=== PATIENT | female | born 2005 | race Caucasian/White ===

== ENCOUNTER 2025-07-23 21:54 | Inpatient (IN) ==
--- NOTE | 2025-07-23 22:34 | Emergency Department Note ---
Impression & Plan Suicidal ideation, Intentional self-harm ED Provider Note HISTORY OF PRESENT ILLNESS: Patient is a 20-year-old female presenting with suicidal ideation and self-harm behavior. Patient reports that for the last 2 weeks she has been having increasing thoughts of wanting to end her life. She states that 2 weeks ago she was taken off of olanzapine and started on a new medication. She reports her last dose of this medication was yesterday and she has not had a dose for today. She states that today she had thoughts of wanting to kill herself with a plan to cut her wrists. She reports that she last attempted suicide last year when she tried to jump out of a moving vehicle. She states that she follows regularly with a psychiatrist and therapist. She reports that she had a therapy appointment today and was fine afterwards. Denies any particular triggers to her suicidality. She denies any homicidal ideation. Denies any auditory or visual hallucinations. She reports her last inpatient admission for mental health was in September 2024 in [place]. ROS: as above PHYSICAL EXAM: Constitutional: Patient appears in no acute distress. HENT: Head: Normocephalic and atraumatic. Eyes: EOMI, PERRL Mouth/Throat: Mucous membranes moist. Neck: Trachea midline. Neck supple. Musculoskeletal: No edema, tenderness or deformity noted. Skin: Warm and dry. No rash, erythema, pallor or cyanosis Psychiatric: Anxious appearing Neurological: Alert and keenly responsive. CN II-XII grossly intact, moving all extremities equally and fully. MDM: - Vitals signs showed tachycardia - History obtained via patient. History as above. - Chronic conditions affecting care: Anxiety/depression; OCD - Differential diagnoses include, but are not limited to: Hypothyroidism; drug intoxication; UTI; alcohol intoxication; depression - External medical records reviewed. - Laboratory workup interpreted by myself showed normal WBC; stable electrolytes; negative hCG; negative salicylate/acetaminophen/alcohol levels; elevated TSH but normal T4 - COVID negative - UA negative for infection. Noted to have bacteria, but also noted to have significant amount of epithelial cells. Urine culture was reflexed, but patient is not having any acute urinary symptoms so will not treat at this time, as likely just a bad sample. - UDS negative. - Patient was seen in conjunction with behavioral health case hardener. Patient was medically cleared. She was a voluntary 201 admission. She was accepted to [facility] inpatient psychiatric unit [address]. ASSESSMENT AND PLAN: Diagnosis: Suicidal ideation; intentional self-harm Plan: admit to [address] [place] [address] Past Med/Surg History Problem List (Updated 07/24/25 @ 00:30 by Katie Garg MD) Intentional self-harm (Acute) Suicidal ideation (Acute) Social History Smoking Status: Never smoker Preferred Language: Bengali Feels Safe at Home: Yes Gender Identity: Female Allergies Allergies Allergy/AdvReac Type Severity Reaction Status Date / Time No Known Allergies Allergy Unverified 09/14/24 16:37 Home Meds Home Medications Medication Instructions Recorded Confirmed hydroxyzine HCl 25 mg tablet 25 mg PO HS 09/05/24 07/23/25 brexpiprazole 0.5 mg tablet 0.5 mg PO DAILY 07/23/25 07/23/25 (Rexulti) doxylamine succinate 25 mg tablet 25 mg PO HS PRN Insomnia 07/23/25 07/23/25 (Unisom (doxylamine)) paroxetine HCl 30 mg tablet 30 mg PO DAILY 07/23/25 07/23/25 Results & Data (ED) Vital Signs Vital Signs - 24 hr 07/23/25 21:56 07/23/25 22:13 07/24/25 00:00 Temperature 36.5 C Temperature Source Temporal Artery Scan Pulse Rate 96 H Pulse Rate [Finger] 86 Pulse Rhythm [Finger] Regular Pulse Strength [Finger] Normal Respiratory Rate 16 16 Respiratory Effort / Characteristics Non-Labored Spontaneous Non-Labored Spontaneous Respiratory Depth Normal Normal Respiratory Pattern Regular Regular Blood Pressure 129/87 Blood Pressure [Right Arm] 101/59 L Blood Pressure Mean 101 Blood Pressure Mean [Right Arm] 73 Blood Pressure Position [Right Arm] Lying Pulse Oximetry 96 97 Oxygen Delivery Method Room Air Room Air Room Air Sepsis Recent Fever Within 48 Hours No Sepsis New/Unexplained Change in Mental Status N/A Sepsis Action Taken by Nursing No Action Required Laboratory Data 07/23/25 22:10 07/23/25 22:10 Lab Results 07/23/25 Range/Units 22:10 WBC 9.84 (4.8-10.8) K/ul RBC 4.65 (4.20-5.40) M/uL Hgb 13.4 (12.0-16.0) g/dl Hct 39.1 (37.0-47.0) % MCV 84.1 (80.0-100.0) fL MCH 28.8 (25.0-34.0) pg MCHC 34.3 (32.0-36.0) g/dL RDW Std Deviation 39.1 (36.4-46.3) fL RDW Coeff of [place] 12.9 (11.5-14.5) % Plt Count 318 (130-400) K/uL MPV 8.9 L (9.4-12.4) fL Immature Gran % (Auto) 0.3 % Neut % (Auto) 61.4 % Lymph % (Auto) 32.2 % [place] % (Auto) 4.4 % Eos % (Auto) 1.2 % Baso % (Auto) 0.5 % Neut # (Auto) 6.04 (1.40-6.50) K/uL Lymph # (Auto) 3.17 (1.20-3.40) K/uL [place] # (Auto) 0.43 (0.11-0.59) K/uL Eos # (Auto) 0.12 (0.00-0.50) K/uL Baso # (Auto) 0.05 (0.00-0.20) K/uL Immature Gran # (Auto) 0.03 (0.01-0.20) K/uL Sodium 137 (136-145) mmol/L Potassium 3.7 (3.5-5.1) mmol/L Chloride 102 (98-107) mmol/L Carbon Dioxide 24 (21-32) mmol/L Anion Gap 11 (3-11) BUN 10 (6-23) mg/dl Creatinine 0.72 (0.6-1.2) mg/dl Est Cr Clr Drug Dosing 105.9 ml/min eGFR 122.68 BUN/Creatinine Ratio 13.9 (10-20) Glucose 91 (70-99(Fasting)) mg/dl Calcium 9.3 (8.6-10.3) mg/dl Total Bilirubin 0.4 (0.2-1.0) mg/dl AST 25 (13-39) U/L ALT 23 (7-52) U/L Alkaline Phosphatase 98 (34-104) U/L Total Protein 7.9 (6.0-8.3) gm/dl Albumin 4.4 (3.4-5.0) gm/dl Globulin 3.5 (2.5-4.0) gm/dl Albumin/Globulin Ratio 1.3 (0.9-2) TSH 6.687 H (0.300-4.500) uIu/ml Free T4 0.97 (0.61-1.60) ng/dl HCG, Qual Negative (Negative) Urine Color Yellow Urine Appearance Cloudy A (Clear) Urine pH 6.0 (4.5-7.5) Ur Specific [place] 1.026 (1.000-1.030) Urine Protein Negative (Negative) Urine Glucose (UA) Negative (Negative) Urine Ketones Negative (Negative) Urine Blood Negative (Negative) Urine Nitrite Negative (Negative) Urine Bilirubin Negative (Negative) Urine Urobilinogen Negative (Negative) Ur Leukocyte Esterase 1+ H (Negative) Urine WBC (Auto) 21-50 H (0-5) /hpf Urine RBC (Auto) 3-5 H (0-2) /hpf U Hyaline Cast (Auto) 0-2 (0-2) /lpf U Epithel Cells (Auto) >20 H (0-2) /hpf Urine Bacteria (Auto) 1+ H (None Seen) Urine Comment Salicylates < 3.0 L (3.0-30) mg/dl Urine Opiates Screen Neg (Neg) Ur Methadone, Qual Neg (Neg) Urine Fentanyl Screen Neg (Neg) Acetaminophen < 3 L (10-30) ug/ml Urine Barbiturates Neg (Neg) Ur Phencyclidine (PCP) Neg (Neg) U Amphetamin/Meth Scrn Neg (Neg) MDMA (Ecstasy) Screen Neg (Neg) U Benzodiazepines Scrn Neg (Neg) Ur Cocaine Metabolite Neg (Neg) U Marijuana (THC) Screen Neg (Neg) Ethyl Alcohol mg/dL < 10.0 (<10.0) mg/dl SARS-CoV-2, RNA, NAAT NEGATIVE (NEGATIVE) Discharge Plan Visit Data Chief Complaint: Mental Health Evaluation Stated Complaint: PSYCHIATRIC EVAL ED Provider: Katie Garg Discharge Problem: Suicidal ideation, Intentional self-harm Patient Disposition: Admitted As Inpatient Condition: Fair Forms Stand Alone Forms: [facility], Suicide Prevention Resources Prescriptions Prescriptions: No Action hydroxyzine HCl 25 mg Tablet 25 mg PO HS paroxetine HCl 30 mg Tablet 30 mg PO DAILY Unisom (doxylamine) 25 mg Tablet 25 mg PO HS PRN (Reason: Insomnia) Rexulti 0.5 mg Tablet 0.5 mg PO DAILY Referrals [facility]: [facility] [Primary Care Provider] -
[2025-07-23 23:01] LABS: Hematocrit (blood only) 39.1 % (37.0-47.0); Hemoglobin 13.4 g/dl (12.0-16.0); Immature Granulocytes # (auto) 0.03 K/uL (0.01-0.20); Immature Granulocytes % (auto) 0.3 %; Mean Corpuscular Hemoglobin 28.8 pg (25.0-34.0); Mean Corpuscular Volume 84.1 fL (80.0-100.0); Platelet Count 318 K/uL (130-400); RDW Standard Deviation 39.1 fL (36.4-46.3); Red Blood Count 4.65 M/uL (4.20-5.40); White Blood Count 9.84 K/ul (4.8-10.8)
[2025-07-23 23:03] LABS: Appearance Urine Cloudy (Clear); Bacteria Urine Automated 1+ (None Seen); Cast Urine Automated 0-2 /lpf (0-2); Epithelial Cell Urine Auto >20 /hpf (0-2); Glucose Urine UA Negative (Negative); WBC Urine Automated 21-50 /hpf (0-5)
[2025-07-23 23:13] LABS: Alanine Aminotransferase 23.0 U/L (7-52); Albumin Globulin Ratio 1.3 (0.9-2); Albumin Level 4.4 gm/dl (3.4-5.0); Alkaline Phosphatase 98.0 U/L (34-104); Anion Gap 11.0 (3-11); Bilirubin,Total 0.4 mg/dl (0.2-1.0); Blood Urea Nitrogen 10.0 mg/dl (6-23); Calcium 9.3 mg/dl (8.6-10.3); Carbon Dioxide 24.0 mmol/L (21-32); Chloride 102.0 mmol/L (98-107); Creatinine Clr Calc Pharmacy 105.9 ml/min; Globulin 3.5 gm/dl (2.5-4.0); Glucose 91.0 mg/dl (70-99(Fasting)); Potassium 3.7 mmol/L (3.5-5.1); Sodium 137.0 mmol/L (136-145); Total Protein 7.9 gm/dl (6.0-8.3)
[2025-07-23 23:19] LABS: Acetaminophen < 3 ug/ml (10-30); Amphetamines+Metham, Urine Neg (Neg); MDMA (Ecstacy), Urine Neg (Neg); Marijuana, Urine Neg (Neg); Pregnancy Test, Serum Negative (Negative); Salicylate < 3.0 mg/dl (3.0-30)
[2025-07-23 23:29] LABS: Thyroid Stimulating Hormone 6.687 uIu/ml (0.300-4.500)
[2025-07-24 00:05] LABS: T4 Free Thyroxine 0.97 ng/dl (0.61-1.60)
[2025-07-24] MEDS ORDERED: ALUMINUM/MAGNESIUM SUSP 30 ML UDC PO PRN (01:00)
[2025-07-24] MEDS ORDERED: MAGNESIUM HYDROXIDE SUSP 30 ML UDC PO PRN (01:00)
[2025-07-24] MEDS ORDERED: BISMUTH SUBSALICYLATE 262 MG CHEW PO PRN (01:00)
[2025-07-24] MEDS ORDERED: ACETAMINOPHEN 325 MG TAB PO PRN (01:00)
[2025-07-24] MEDS ORDERED: SODIUM CHLORIDE 0.65% NA SOLN 45 ML (OCEAN) PRN (01:00)
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
--- NOTE | 2025-07-25 08:37 | Psychiatric Progress Note ---
Date of Service July 25, 2025 Impression / Recommendations Impression KRISTAL PRESLEY is a 20-year-old [facility] yo originally from [place], who currently lives in an off campus apartment with her girlfriend, has a history of OCD, major depressive disorder, and borderline personality disorder, and was admitted on 07/24/25 00:32 on a 201 voluntary commitment for increase in baseline suicidal ideation and self-harm urges/behaviors, in context of her recent medication change. From a psychiatric perspective, Patient has multiple chronic psychiatric conditions and a complicated past psychiatric treatment course, with the primary conditions being major depressive disorder and OCD both of which are Her OCD is severe and impact her functioning significantly. However, she is typically better able to manage the obsessions and compulsions when less depressed. She can clearly identify a link between switching off of olanzapine and her decompensation. She is already experiencing fewer intrusive thoughts and a decrease in emotional intensity today after resuming the olanzapine last night. She has identified that the Paxil is not particularly helpful. She is on a relatively low dose for OCD and was agreeable to increase that. She is not interested at all and changing off the Zyprexa. Intake interview did not suggest a significant bipolar disorder, or substance use that would be contributing. UDS was negative. She reported previous diagnosis of ARFID as well as generalized anxiety disorder, however I see these symptoms as contained under the umbrella of her severe OCD. It is interesting that her depression does fluctuate hormonally and with seasons. I did give her the mood disorder questionnaire to make sure no symptoms of hypomania were missed. I also supplied her with PHQ-9, JOLIE-7, BIB questionnaire and [place] borderline personality questionnaire. I will review those with her when she completes them. Today, I spent a total of 35 minutes on this patients care, including review of chart,review of records,direct evaluation of the patient,counseling the patient,ordering medication,coordination with nursing,interdisciplinary team meeting,and documentation. (1) Major depressive disorder, recurrent episode: (2) Obsessive-compulsive disorder with good or fair insight: (3) Borderline personality disorder: Plan 07/25/25: Increased anxiety today, but still no significant suicidal ideation. She does have thoughts/urges to self-harm, but says it at it is at her chronic baseline. She has not acted on those thoughts and does not plan to. Offered support and encouraged coping. Continue current medications and treatment 07/24/25: The patient was admitted to the [facility]) on q15 min checks (behavioral with suicide precautions) for safety. The patient will participate in group, recreational, and milieu therapies and will be offered additional individual and family sessions as clinically appropriate. New medications initiated: Paxil 40 mg every morning, starting tomorrow a.m. (30 mg given x1 this afternoon) Continue the following home medications: olanzapine 5 mg nightly The following PRN medications will be started as well: typical PRNs for GI upset, including Maalox, milk of magnesia, and Pepto Tylenol as needed for headache or minor fever Vistaril 25 mg every 4 as needed for anxiety Vistaril 50 mg nightly as needed for insomnia labs ordered: Fasting lipid panel and hemoglobin A1c in a.m. Inventory Assets Strengths: good insight and self reflection Establish outpatient supports Supportive person at home Advocates for her needs appropriately Self-presented to the emergency room no substance use Needs: significant history of multiple psychiatric diagnoses and complicated treatment Chronic suicidal ideation Chronic self-injurious behavior/urges Suicide Risk Level Suicide Risk Level: Moderate (q15 min suicide checks) Suicide Risk Level Comments: chronic suicidal ideation, less severe today. no no intent or plan today. +Recent self-harming behavior. Does report she can reach out to staff if symptoms worsen here, and that she feels safe on the unit. She has been advocating for her needs. Risk Factors Assessment Male: No : Yes Do You Have Access To A Gun?: No Health Problems: No Mental Health Diagnoses: Yes Substance Use Disorders: No Previous Attempt: Yes Previous Psychiatric Hospitalization: Yes Hopelessness: No Protective Factors Assessment Amish Beliefs: No : No Responsible for Young Children: No Employed: No Stable Relationships: Yes Supportive Family: Yes Good Rapport with Provider: Yes Interval History Chief Complaint "[]". Review of Systems Sleep Information Total Hours of Sleep: 7.25 Meal Information Percent Meal Consumed - Lunch: 75 Percent Meal Consumed - Dinner: 100 Subjective Subjective Patient was seen & assessed and interval progress reviewed with nursing and social work per nursing report, patient had fasting labs drawn this a.m. She slept 7.25 hours last night, after taking Vistaril at bedtime. She has been attending [employer]. She seemed more anxious today, rated her mood a 4 out of 10 and described as "sad". She has been out of her room. She is interacting with peers. She is showering and eating well. Later in the afternoon, she did meet with her outpatient outsole caser. I met with the patient privately in the purple office. She said that she has some nasal congestion and a sore throat today. No fever, no change to taste or smell. However having the cold symptoms has made her worried about possibly getting nauseous or vomiting. She has been trying to cope by distracting herself. She says having more obsessions about getting sick does contribute to feeling more depressed today. She said "is not terrible just worse than yesterday." She continues to deny suicidal ideation though. She has no intent or plan to hurt herself. She has thoughts of self-harm/cutting, but has not acted on this and does not plan to. She says she has been more anxious, but it is within her typical range of anxiety. She has not had panic attacks. She does not feel that she is "spiraling". She plans to attend programming today, rest and read to distract from the obsessive thoughts and compulsive urges. Physical Exam Psychiatric Orientation: alert, oriented x 3 and cooperative Apperance: appropriately dressed and appropriately groomed Eye Contact: good eye contact Motor Behavior: steady gait and station and no abnormal motor movements; n EPS Some fidgeting Speech: normal rate/rhythm/volume of speech Affect: + anxious affect and + constricted affect Mood: + depressed mood and + anxious mood Thought Process: goal directed thought process, linear/logical thought process and clear/coherent thought process Thought Content: + obsessions and + compulsions Suicidal Thoughts: denies suicidal thoughts, denies suicidal plan and denies suicidal intent Homicidal Thoughts: denies homicidal thoughts, denies homicidal plan and denies homicidal intent Hallucinations: no auditory hallucinations and no visual hallucinations Cognition: recent memory grossly intact, remote memory grossly intact and language grossly intact Estimated Intelligence: consistent with education level Insight: + fair insight Judgment: + fair judgement Vital Signs (Past 24 Hours) Last Vital Signs Temp 36.7 C 07/25/25 06:14 Pulse 82 07/25/25 06:15 Resp 16 07/25/25 06:14 BP 116/73 07/25/25 06:15 Pulse Ox 99 07/24/25 01:06 O2 Del Method Room Air 07/24/25 01:06 Results & Data ([facility]) Laboratory Results Laboratory Results - last 24 hr 07/25/25 07:48 Estimat Average Glucose Pending Hemoglobin A1c Pending Triglycerides Pending Cholesterol Pending VLDL Cholesterol, Calc Pending HDL Cholesterol Pending Cholesterol/HDL Ratio Pending Current Inpatient Medications Current Inpatient Medications: Current Inpatient Medications Acetaminophen (Acetaminophen 325 Mg Tab) 650 mg PO Q4H PRN PRN Reason: Headache or Minor Fever Stop: 08/23/25 00:59 Al Hydrox/Mg Hydrox/Simethicone (Aluminum/Magnesium Susp 30 Ml Udc) 30 ml PO Q4H PRN PRN Reason: GI Upset Stop: 08/23/25 00:59 Bismuth Subsalicylate (Bismuth Subsalicylate 262 Mg Chew) 2 tab PO Q30M PRN PRN Reason: Loose Stool/Diarrhea Stop: 08/23/25 00:59 Hydroxyzine HCl (Hydroxyzine Hcl 25 Mg Tab) 50 mg PO HSZ PRN PRN Reason: Insomnia Stop: 08/23/25 00:59 Last Admin: 07/24/25 20:42 Dose: 50 mg Hydroxyzine HCl (Hydroxyzine Hcl 25 Mg Tab) 25 mg PO Q4H PRN PRN Reason: Anxiety Stop: 08/23/25 00:59 Magnesium Hydroxide (Magnesium Hydroxide Susp 30 Ml Udc) 30 ml PO DAILY PRN PRN Reason: Constipation Stop: 08/23/25 00:59 Olanzapine (Olanzapine 5 Mg Tablet) 5 mg PO HS DEEJAY Stop: 08/23/25 21:59 Last Admin: 07/24/25 20:36 Dose: 5 mg Paroxetine HCl (Paroxetine Hcl 20 Mg Tab) 40 mg PO QAM DEEJAY Stop: 08/24/25 08:59 Sodium Chloride (Sodium Chloride 0.65% Na Soln 45 Ml ([place])) 1 - 2 sprays NA PRN PRN PRN Reason: Nasal Dryness/Congestion Stop: 08/23/25 00:59 Mental Health & Subst Abuse Tx Psychiatrist Name of Psychiatrist: [facility]'s Psychiatric Appointment Comment: [address], [place] [address] Therapist Name of Therapist: Shelley esparza [facility] Therapist's Date of Therapist Appointment: 07/24/25 Therapy Appointment Comment: [address], [place] [address] Activity Coordinator Name of Activity Coordinator: N/A Post Discharge Appointments Primary Care Physician Name Of Family Doctor/PCP: [facility]
[2025-07-25 08:53] LABS: Cholesterol 223.0 mg/dl (0-200); HDL Cholesterol 51.0 mg/dl; Triglycerides 116.0 mg/dl (0-150)
[2025-07-25 09:04] LABS: Hemoglobin A1C 5.3 % (4.5-5.6)
[2025-07-25 17:22] LABS: Chlamydia pneumoniae PCR Not Detected (NotDetected); Coronavirus 229E PCR Not Detected (NotDetected); Coronavirus CoV-2 (COVID19)PCR Not Detected (NotDetected); Coronavirus HKU1 PCR Not Detected (NotDetected); Coronavirus NL63 PCR Not Detected (NotDetected); Coronavirus OC43PCR Not Detected (NotDetected); Human Metapneumovirus PCR Not Detected (NotDetected); Parainfluenza Virus 1 PCR Not Detected (NotDetected); Parainfluenza Virus 2 PCR Not Detected (NotDetected); Parainfluenza Virus 3 PCR Not Detected (NotDetected); Parainfluenza Virus 4 PCR Not Detected (NotDetected); Respiratory Syncytial VirusPCR Not Detected (NotDetected); Rhinovirus/Enterovirus PCR DETECTED (NotDetected)
--- NOTE | 2025-07-26 08:54 | Discharge Summary ---
Date of Service July 26, 2025 History of Present Illness Laura is not previously known to the psychiatric service here at [facility]. She self-presented to the emergency room, reporting increased depression with suicidal ideation for the past 2 weeks. She also had made bilateral cuts to her forearms. She does report history of chronic suicidal ideation and longstanding history of cutting. She reports symptoms were precipitated by a recent change to her psychiatric medication regimen. She was stable on a combination of Zyprexa, Paxil and Vistaril (with OTC Unisom for sleep as needed). However, she was gaining weight on Zyprexa, so they attempted to switch her from Zyprexa to Rexulti. She says it "went downhill immediately." She felt she could not get out of bed, had decreased motivation and anhedonia. She was missing classes for the last 2 weeks. She started developing suicidal ideation, and then had significantly worse suicidal ideation yesterday when she accidentally missed her psychiatry appointment. At that point, she did cut her arms with a razor. She said that was not an intention to , rather to release some emotional intensity. Upon arrival to the emergency room and subsequent admission on a 201, olanzapine 5 mg was ordered for her which she received last night. She says "I am already feeling better today." Still feels depressed and anxious, but less overcome by negative thoughts. Patient's psychiatric baseline is complex. She has a significant history of major depressive episodes, including multiple past suicide attempts and psychiatric hospitalizations. OCD symptoms are broad, but often relate to patient's fear of vomiting. She has many rituals to avoid contamination with possible germs. For example specific shower routines, limited food choices, and avoiding touching certain items. She also has compulsions that are less reality based, and describes it as "magical thinking". She for instance must park in the same spot every day to avoid getting sick and vomiting. She says if that spot is not available for instance, she will feel scared all day. She also has mental rituals, including monitoring conversations for certain words. If the person she is talking to uses the word sick, she says "I know I will get sick that day." Also has counting and mantras she repeats to herself. Also have a history of intrusive images of harming herself or others. Those images make her afraid, and she knows it is a reflection of her OCD flaring, rather than her depression. At other times though, she "fantasizes" about self-harming or suicide he as an escape from her depression. OCD symptoms are present all the time, but more manageable when she is on the Zyprexa. Depression comes and goes though, and often is in response to how severe the OCD is. Similarly, the OCD tends to get worse if depression is worsening as well. Depression also tends to worsen in the winter, and the week before her period. She is future oriented today, and already asking about discharge. She is not requesting discharge today, but hopes to have a short stay. She has already been out of her room and attending programming. She has been eating and tending to ADLs as well. She denies auditory visual hallucinations. She does not report paranoia or any other delusional content. No recent substance abuse reported. Reports SI is less intense today. She does have chronic suicidal ideation, which typically is passive and intermittentat baseline. Denies HI. Physical Exam Psychiatric Orientation: alert, oriented x 3 and cooperative Apperance: appropriately dressed and appropriately groomed Eye Contact: good eye contact Motor Behavior: steady gait and station, no abnormal motor movements and + psychomotor agitation; n EPS and n akathisia Speech: normal rate/rhythm/volume of speech Affect: + anxious affect, + constricted affect and mood congruent with affect Mood: + anxious mood Thought Process: goal directed thought process, linear/logical thought process, clear/coherent thought process and thought association intact Thought Content: + obsessions, + cognitive distortions, + compulsions and + self deprecation Suicidal Thoughts: denies suicidal thoughts, denies suicidal plan and denies suicidal intent Homicidal Thoughts: denies homicidal thoughts, denies homicidal plan and denies homicidal intent Hallucinations: no auditory hallucinations and no visual hallucinations Cognition: recent memory grossly intact, remote memory grossly intact, attention grossly intact and language grossly intact Estimated Intelligence: consistent with education level Insight: + fair insight Judgment: + fair judgement Vital Signs (Past 24 Hours) Last Vital Signs Temp 36.7 C 07/26/25 06:20 Pulse 76 07/26/25 06:21 Resp 18 07/26/25 06:20 BP 125/77 07/26/25 06:21 Pulse Ox 99 07/24/25 01:06 O2 Del Method Room Air 07/24/25 01:06 A physical exam was performed in the ED by Dr. Katie Garg for the purposes of medical clearance. I accept that physical as correct and adequate for the purposes of the inpatient physical exam. Principal Diagnosis Major Depressive Disorder, OCD, Borderline personality disorder Psychiatric Data See daily stay summary. In short, safety was maintained and the patient was cooperative with care. Medication changes included restarting Olanzapine, and increasing Paxil dose; they tolerated this well. A family session was held and safety plan was completed prior to discharge. Day of Discharge Assessment Today the patient voices readiness for discharge. They note improvement in mood and deny thoughts to harm self or others. Thoughts remain organized and they are improved from admission. There is no evidence of psychosis. They agree to take mediations as prescribed and keep follow-up appointments. They are stable for discharge to outpatient level of care. Transition of Care Transition Of Care Record: was reviewed with the patient Advance Directives Advance Directives Information Provided: Yes Advance Directives: No Mental Health Advance Directive: No Advance Directives on File: No Living Will: No Power of Digital Media Specialist: No Advance Directives Reason:: Declines as Mental Health Visit. Suicide Risk Level Suicide Risk Level: Low (q15 min observation checks) Suicide Risk Level Comments: symptoms are at baseline. She gets fleeting thoughts of suicide or self harm chronically. No intent or plan to harm self. Symptoms are improved from admission. Risk Factors Assessment Male: No : Yes Do You Have Access To A Gun?: No Health Problems: No Mental Health Diagnoses: Yes Substance Use Disorders: No Previous Attempt: Yes Previous Psychiatric Hospitalization: Yes Hopelessness: No Protective Factors Assessment Catholic Beliefs: No : No Responsible for Young Children: No Employed: No Stable Relationships: Yes Supportive Family: Yes Good Rapport with Provider: Yes Discharge Data Lab Results 07/23/25 07/25/25 07/25/25 22:10 07:48 16:21 WBC 9.84 RBC 4.65 Hgb 13.4 Hct 39.1 MCV 84.1 MCH 28.8 MCHC 34.3 RDW Std Deviation 39.1 RDW Coeff of Daria 12.9 Plt Count 318 MPV 8.9 L Immature Gran % (Auto) 0.3 Neut % (Auto) 61.4 Lymph % (Auto) 32.2 [place] % (Auto) 4.4 Eos % (Auto) 1.2 Baso % (Auto) 0.5 Neut # (Auto) 6.04 Lymph # (Auto) 3.17 [place] # (Auto) 0.43 Eos # (Auto) 0.12 Baso # (Auto) 0.05 Immature Gran # (Auto) 0.03 Sodium 137 Potassium 3.7 Chloride 102 Carbon Dioxide 24 Anion Gap 11 BUN 10 Creatinine 0.72 Est Cr Clr Drug Dosing 105.9 eGFR 122.68 BUN/Creatinine Ratio 13.9 Glucose 91 Estimat Average Glucose 105 Hemoglobin A1c 5.3 Calcium 9.3 Total Bilirubin 0.4 AST 25 ALT 23 Alkaline Phosphatase 98 Total Protein 7.9 Albumin 4.4 Globulin 3.5 Albumin/Globulin Ratio 1.3 Triglycerides 116 Cholesterol 223 H LDL Cholesterol, Calc 149 VLDL Cholesterol, Calc 23 HDL Cholesterol 51 Cholesterol/HDL Ratio 4.4 TSH 6.687 H Free T4 0.97 HCG, Qual Negative Urine Color Yellow Urine Appearance Cloudy A Urine pH 6.0 Ur Specific [place] 1.026 Urine Protein Negative Urine Glucose (UA) Negative Urine Ketones Negative Urine Blood Negative Urine Nitrite Negative Urine Bilirubin Negative Urine Urobilinogen Negative Ur Leukocyte Esterase 1+ H Urine WBC (Auto) 21-50 H Urine RBC (Auto) 3-5 H U Hyaline Cast (Auto) 0-2 U Epithel Cells (Auto) >20 H Urine Bacteria (Auto) 1+ H Urine Comment Salicylates < 3.0 L Urine Opiates Screen Neg Ur Methadone, Qual Neg Urine Fentanyl Screen Neg Acetaminophen < 3 L Urine Barbiturates Neg Ur Phencyclidine (PCP) Neg U Amphetamin/Meth Scrn Neg MDMA (Ecstasy) Screen Neg U Benzodiazepines Scrn Neg Ur Cocaine Metabolite Neg U Marijuana (THC) Screen Neg Ethyl Alcohol mg/dL < 10.0 Adenovirus (PCR) Not Detected B. pertussis DNA (PCR) Not Detected B.parapertussis DNA PCR Not Detected C. pneumoniae DNA (PCR) Not Detected Coronavirus OC43 (PCR) Not Detected Coronavirus HKU1 (PCR) Not Detected Coronavirus 229E (PCR) Not Detected SARS-CoV-2 (PCR) Not Detected Coronavirus NL63 (PCR) Not Detected Human Metapneumovir PCR Not Detected Influenza Type A (PCR) Not Detected Influenza Type B (PCR) Not Detected M. pneumoniae (PCR) Not Detected Parainfluenza 1 (PCR) Not Detected Parainfluenza 2 (PCR) Not Detected Parainfluenza 3 (PCR) Not Detected Parainfluenza 4 (PCR) Not Detected RSV (PCR) Not Detected Entero/Rhino (PCR) DETECTED A SARS-CoV-2, RNA, NAAT NEGATIVE Hospital Course (1) Major depressive disorder, recurrent episode: (2) Obsessive-compulsive disorder with good or fair insight: (3) Borderline personality disorder: Plan 07/26/25: Rhinovirus +. She's been adherent with wearing a mask when out of her room. URI symptoms remain mild. Psychiatrically, she reports improved mood (6/10) today and no SI. "Not even passive thoughts". Acknowledges she has c hronic thoughts of suicide and self harm at baseline which she can typically cope with when anxiety and depression are less intense. Pt reports anxiety is less intense, and that she feels stable and at baseline. D/c to home with support from girlfriend. She is looking forward to getting a puppy tomorrow afternoon. Pt has outpatient appointments - psychiatry, therapy, and case management. 07/25/25: Increased anxiety today, but still no significant suicidal ideation. She does have thoughts/urges to self-harm, but says it at it is at her chronic baseline. She has not acted on those thoughts and does not plan to. Offered support and encouraged coping. Continue current medications and treatment 07/24/25: The patient was [facility] to the [facility]) on q15 min checks (behavioral with suicide precautions) for safety. The patient will participate in group, recreational, and milieu therapies and will be offered additional individual and family sessions as clinically appropriate. New medications initiated: Paxil 40 mg every morning, starting tomorrow a.m. (30 mg given x1 this afternoon) Continue the following home medications: olanzapine 5 mg nightly The following PRN medications will be started as well: typical PRNs for GI upset, including Maalox, milk of magnesia, and Pepto Tylenol as needed for headache or minor fever Vistaril 25 mg every 4 as needed for anxiety Vistaril 50 mg nightly as needed for insomnia labs ordered: Fasting lipid panel and hemoglobin A1c in a.m. Mental Health & Subst Abuse Tx Psychiatrist Name of Psychiatrist: [facility] Date Of Appointment With Psychiatric Provider: 08/13/25 Time of Appointment with Psychiatrist: 9:00 am Psychiatric Appointment Comment: [address], [place] [address] Therapist Name of Therapist: Shelley at [facility] Therapist's Date of Therapist Appointment: 07/29/25 Time of Therapist Appointment: 9:00 am Therapy Appointment Comment: Go To Shelley's Office to have your session with her and Martita @[facility] [employer] Listing Consultant Name of Real Estate Listing Consultant: Angela Hunter MookieColeen) Phone Number for Real Estate Listing Consultant: [phone] Date of Appointment with Real Estate Listing Consultant: 07/29/25 Time of Appointment with Real Estate Listing Consultant: 1400 Post Discharge Appointments Primary Care Physician Name Of Family Doctor/PCP: [facility] Other #1: Name of Aftercare Appointment: [facility] Phone Number of Aftercare Appointment: [phone] Date of Aftercare Appointment: 07/29/25 Time of Aftercare Appointment: 9AM Aftercare Appointment Comment: Virtual - access on portal Will be joining Session with Shelley #2: Name of Aftercare Appointment: [facility] Date of Aftercare Appointment: 07/29/25 Time of Aftercare Appointment: 5PM Aftercare Appointment Comment: Virtual - access on portal #3: Name of Aftercare Appointment: [facility] Post Hospitalization Zoom meeting Phone Number of Aftercare Appointment: [phone] Date of Aftercare Appointment: 07/30/25 Time of Aftercare Appointment: 1PM Aftercare Appointment Comment: Zoom link will be sent to your [facility] email Contact Information Discharge Discharge Address: [address] [place] [address] Discharge Plan Discharge Items Patient Disposition: Home - Self-Care Reason For Visit: MAJOR DEPRESSIVE DISORDER Discharge Diagnosis: MDDR, OCD, Borderline personality disorder Condition on Discharge: Fair Activity: Resume your previous activity Non-emergency contact: Primary Care Provider, Psychiatrist and Therapist Call non-emergency contact if: you have any medication questions and your symptoms worsen Follow-up/Referrals: [place],[facility] [Primary Care Provider] - Diet: Regular Addtl Attending Provider Instructions: We discussed keeping your safety plan easily accessible, to use in times of distress. Please utilize your positive coping skills and your supports! Phone Apps: Safety plan My [employer] Also discussed possible use of naltrexone for self harm urges, which you can further discuss with your outpatient psychiatrist SPECIAL CARE INSTRUCTIONS: 1. Follow through with your scheduled aftercare appointments. If unable to keep an appointment, please call to reschedule. 2. Take your medication only as prescribed. Medication should not be changed or stopped without the approval of your doctor. In the event of worsening symptoms or concerns about side effects, contact your doctor immediately. 3. Utilize new healthy coping skills, anger management skills, and stress management skills learned during your hospitalization. Journal feelings and process them with a support person. Identify stressors or situations that may result in relapse, deterioration or inappropriate behaviors and develop a plan to deal with those issues. 4. If your coping skills are ineffective and you are in crisis, contact your outpatient providers for direction. If unable to reach your providers, please call the [facility] CRISIS LINE AT , go to the [facility] walk-in center at [address] [place] [address] [facility], or go to the closest Emergency Room. 5. Avoid alcohol and un-prescribed drugs. 6. You have been provided with the Mental Health Advance Directives Pamphlet for your review. 7. Your condition is stable for discharge to outpatient level of care, but recovery is an ongoing process. Ifthoughts to harm yourself or others return, follow the safety plan developed during your stay. Planning for a safe return home includes securing weapons. Our treatment team recommends weaponsbe removed from the home until your outpatient provider reassesses your progress. In rare cases where the items themselvescannot be removed, guns and ammunitionshould be secured separatelyand keys stored by a reliable personoutside of the home. If you were admitted on an involuntary commitment, the police or other legal authorities may be involved in this process. AFTERCARE APPOINTMENTS: * Please call your insurance company prior to your scheduled appointment to confirm your aftercare providers are covered. Take your insurance information to your appointments. WHO TO CALL AND WHEN: Medical Emergencies: For questions or emergencies related to your hospital stay, please contact the Inpatient Behavioral Health Unit at [phone]. A advanced practice psychiatric nurse is on-call 23/05 for the Behavioral Health Unit for emergencies At any time you feel your situation is an emergency, you may also call 911 immediately. Pending Studies at Discharge: No Stand-Alone Forms: My [facility], Smoking Cessation Medications and DC Order Prescriptions: New olanzapine 5 mg Tablet 5 mg PO HS 30 Days Qty: 30 0RF paroxetine HCl 40 mg tablet 40 mg PO HS 30 Days Qty: 30 0RF Continued hydroxyzine HCl 25 mg Tablet 25 mg PO HS Unisom (doxylamine) 25 mg Tablet 25 mg PO HS PRN (Reason: Insomnia) Discontinued paroxetine HCl 30 mg Tablet 30 mg PO DAILY Rexulti 0.5 mg Tablet 0.5 mg PO DAILY Discharge Orders: Discharge Order (Routine); Ordered 07/26/25 Ordered By: Tanya Adams/Other Patient Handouts: Suicide Warning What To Do, Suicide Know Self Warnings, BPD, OCD Admission Data Admit Date/Time: 07/24/25 00:32 Attending Provider: Tanya Carpenter Admit Provider: Tanya Carpenter Primary Care Provider: [facility] Other Interventions: PSY Interdisciplinary Discharge Planning Last Done: 07/25/25 15:09 Coding Level of Care Code 70917 D/C day mgmt > 30 min Diagnoses Major depressive disorder, recurrent episode F33.9 Obsessive-compulsive disorder with good or fair insight F42.9 Borderline personality disorder F60.3
== END 2025-07-26 14:20 | disposition home or self-care (01) | DRG 885 ==
LOC: ED 21:54 → 3S 07-24 00:32